=== PATIENT | male | born 1965 | race Caucasian/White ===

== ENCOUNTER 2017-02-26 16:11 | Emergency (ER) | payer BC ==
[2017-02-26 16:43] VITALS: BP 153/91
--- NOTE | 2017-02-26 17:21 | UC ---
Throat Pain/Nasal Payam HPI - HPI Summary HPI Summary: Patient presents with 7 days onset complaints of nasal discharge, sinus pain and pressure. Denies fever, chills, nausea and vomiting. He states these symptoms are consistent with previous sinus infections. - History of Current Complaint Chief Complaint: UCRespiratory Stated Complaint: SINUS CONGESTION,COUGH Time Seen by Provider: 02/26/17 17:00 Hx Obtained From: Patient Onset/Duration: Gradual Onset, Lasting Days Severity: Moderate Associated Signs & Symptoms: Positive: Sinus Discomfort, Nasal Discharge - Epiglottits Risk Factors Epiglottis Risk Factors: Negative - Allergies/Home Medications Allergies/Adverse Reactions: Allergies Allergy/AdvReac Type Severity Reaction Status Date / Time Aspirin [ASA] Allergy Tachycardia Verified 02/26/17 17:04 Ibuprofen Allergy Tachycardia Verified 02/26/17 17:04 PMH/Surg Hx/FS Hx/Imm Hx Previously Healthy: Yes Cardiovascular History: Atrial Fibrillation - Surgical History Surgical History: Yes Surgery Procedure, Year, and Place: Surgery to correct deviated septum, nasal polyp removal - Family History Known Family History: Positive: Cardiac Disease, Hypertension, Diabetes - Social History Alcohol Use: None Substance Use Type: None Smoking Status (MU): Never Smoked Tobacco Have You Smoked in the Last Year: No - Immunization History Most Recent Influenza Vaccination: none Most Recent Tetanus Shot: patient doesn't know Most Recent Pneumonia Vaccination: none Hx Tetanus, Diphtheria Vaccination: Yes Vaccination Up to Date: Yes Review of Systems ENT: Nasal Discharge All Other Systems Reviewed And Are Negative: Yes Physical Exam Triage Information Reviewed: Yes Appearance: Well-Appearing Vital Signs: Initial Vital Signs Temp 98.3 F 02/26/17 16:41 Pulse 61 02/26/17 16:41 Resp 18 02/26/17 16:41 BP 153/91 02/26/17 16:41 Pulse Ox 97 02/26/17 16:41 Vital Signs Reviewed: Yes Eye Exam: Normal ENT: Positive: Nasal drainage Neck exam: Normal Respiratory Exam: Normal Cardiovascular Exam: Normal Skin Exam: Normal Throat Pain/Nasal Course/Dx - Course Course Of Treatment: Patient presents with complaints of sinus pain, pressure and nasal discharge. RX augmentin, and prednisone. Recommend follow up with ENT if symptoms persist. Discharge home in stable condition. - Differential Dx/Diagnosis Differential Diagnosis/HQI/PQRI: Sinusitis Provider Diagnoses: sinusitis Discharge - Discharge Plan Condition: Stable Disposition: HOME Prescriptions: Amoxicillin/Clavulanate TAB* [Augmentin TAB 500 mg*] 500 mg PO BID #20 tab predniSONE TAB* [Deltasone TAB*] 20 mg PO BID #10 tab Patient Education Materials: Sinusitis (ED) Referrals: Robert Tineo MD [Primary Care Provider] -
== END 2017-02-26 17:21 | disposition home or self-care (01) ==
LOC: UCEAST 16:11
DX: J01.90 Acute sinusitis, unspecified (principal)
CPT/HCPCS: 99212; G0463

== ENCOUNTER 2018-10-21 12:40 | Emergency (ER) | payer BC ==
[2018-10-21 13:12] LABS: Influenza A Molecular POSITIVE (Negative)
[2018-10-21 13:25] VITALS: BP 174/90
--- NOTE | 2018-10-21 13:38 | UC ---
FLU HPI - HPI Summary HPI Summary: 2 days of fatigue, chills, fever, body aches and mild cough. Has headache. Feels wiped out. Occasional palpitations. No flu shot this season. - History of Current Complaint Chief Complaint: UCGeneralIllness Stated Complaint: CHILLS,BODY ACHES Time Seen by Provider: 10/21/18 13:18 Hx Obtained From: Patient Onset/Duration: Gradual Onset, Lasting Days, Still Present Severity Currently: Moderate Severity Initially: Moderate Pain Intensity: 5 Pain Scale Used: 0-10 Numeric Associated Signs & Symptoms: Positive: Fever, Myalgia, Cough, Headache - Allergy/Home Medications Allergies/Adverse Reactions: Allergies Allergy/AdvReac Type Severity Reaction Status Date / Time aspirin Allergy Tachycardia Verified 10/21/18 12:59 ibuprofen Allergy Tachycardia Verified 10/21/18 12:59 Home Medications: Home Medications glipiZIDE [Glipizide] 5 mg PO 10/21/18 [History] PMH/Surg Hx/FS Hx/Imm Hx Endocrine History: Diabetes Cardiovascular History: Hypertension, Atrial Fibrillation - Surgical History Surgical History: Yes Surgery Procedure, Year, and Place: Surgery to correct deviated septum, nasal polyp removal - Family History Known Family History: Positive: Cardiac Disease, Hypertension, Diabetes - Social History Alcohol Use: Rare Substance Use Type: None Smoking Status (MU): Never Smoked Tobacco Have You Smoked in the Last Year: No - Immunization History Most Recent Influenza Vaccination: none Most Recent Tetanus Shot: patient doesn't know Most Recent Pneumonia Vaccination: none Hx Tetanus, Diphtheria Vaccination: Yes Vaccination Up to Date: Yes Review of Systems All Other Systems Reviewed And Are Negative: Yes Constitutional: Positive: Fever, Chills, Fatigue Respiratory: Positive: Cough Cardiovascular: Positive: Negative Gastrointestinal: Positive: Negative Musculoskeletal: Positive: Arthralgia, Myalgia Neurological: Positive: Headache Physical Exam Triage Information Reviewed: Yes Appearance: Well-Appearing, No Pain Distress, Well-Nourished Vital Signs: Initial Vital Signs Temp 100.3 F 10/21/18 12:54 Pulse 93 10/21/18 12:54 Resp 18 10/21/18 12:54 BP 174/90 10/21/18 12:54 Pulse Ox 96 10/21/18 12:54 Laboratory Tests 10/21/18 13:07 Influenza A (Rapid) Positive A Vital Signs Reviewed: Yes Eyes: Positive: Conjunctiva Clear ENT: Positive: Hearing grossly normal, Pharynx normal, TMs normal Neck: Positive: Supple, Nontender, No Lymphadenopathy Respiratory Exam: Normal Cardiovascular: Positive: Other: - irregularly irregular Abdomen Description: Positive: Soft Musculoskeletal: Positive: No Edema Neurological: Positive: Alert Psychological: Positive: Age Appropriate Behavior Skin: Negative: Rashes Diagnostics - EKG Cardiac Rate: NL - 82BPM Cardiac Rhythm: Sinus: Normal Ectopy: PVCs ST Segment: Normal Flu Course/Dx - Course Course Of Treatment: REPEAT BLOOD PRESSURE SLIGHTLY IMPROVED BUT STILL NOT GREAT. WAS BORDERLINE TACHYCARDIC UPON TRIAGE AND PATIENT HAS A KNOWN HISTORY OF ATRIAL FIBRILLATION. STATES HE KNOWS WHEN HE IS IN AFIB HE FEELS PALPITATIONS. EKG SHOWED PATIENT IN NORMAL SINUS RHYTHM. DISCUSSED POSSIBILITY OF TRANSFER TO ED GIVEN HIS PALPITATIONS WITH KNOWN AFIB AND ELEVATED BLOOD PRESSURE IN THE SETTING OF POSITIVE INFLUENZA. PATIENT DECLINES TRANSPORT TO THE ER. ADVISED THAT BY DECLINING EVALUATION IN THE ER HE IS RISKING WORSENING OF HIS MEDICAL CONDITION THAT COULD POSE A THREAT TO HIS LIFE , HEALTH AND MEDICAL SAFETY. HE VERBALIZES UNDERSTANDING AND CONTINUES TO DECLINE TRANSFER. STATES HE WILL GO IF HE FEELS WORSE. - Differential Dx/Diagnosis Provider Diagnosis: Influenza A Discharge - Sign-Out/Discharge Documenting (check all that apply): Patient Departure All imaging exams completed and their final reports reviewed: No Studies - Discharge Plan Condition: Stable Disposition: HOME Prescriptions: Oseltamivir CAP* [Tamiflu CAP*] 75 mg PO BID #10 cap Patient Education Materials: Influenza (ED) Referrals: Robert Tineo MD [Primary Care Provider] - 1 Week Additional Instructions: SWAB POSITIVE FOR INFLUENZA A. TAMIFLU TWICE DAILY FOR 5 DAYS. OTC MEDS NEEDED FOR FEVER, BODY ACHES. STAY WELL HYDRATED AND RESTED. SEEK FOLLOW-UP IF YOU ARE NOT IMPROVING EXPECTED. YOUR BLOOD PRESSURE WAS ELEVATED TODAY. THIS MAY BE DUE TO YOUR ACUTE CONDITION. MONITOR AND FOLLOW-UP WITH YOUR PCP WITHIN 4 WEEKS IF IT HAS NOT RETURNED TO NORMAL. EKG SINUS 82 BPM. THIS IS GOOD. GO TO THE ER WITHOUT FAIL IF YOU DEVELOP SHORTNESS OF BREATH, CHEST PAIN, NAUSEA , SWEATS, PALPITATIONS, DIZZINESS OR ANY OTHER CONCERNING SYMPTOMS. - Billing Disposition and Condition Condition: STABLE Disposition: Home
== END 2018-10-21 14:28 | disposition home or self-care (01) ==
LOC: UCEAST 12:40
DX: J10.1 Influenza due to other identified influenza virus with other respiratory manifestations (principal); E11.9 Type 2 diabetes mellitus without complications; I10 Essential (primary) hypertension; Z88.8 Allergy status to other drugs, medicaments and biological substances
CPT/HCPCS: 99212; G0463